=== PATIENT | male | born 1940 | race Caucasian/White ===

== ENCOUNTER → 2024-02-11 08:46 | Outpatient (REF) | payer MEDICARE, OTHER, SELFPAY ==
[2024-02-11 10:55] LABS: ALT (SGPT) 29 U/L (0-50); AST (SGOT) 31 U/L (17-59); Albumin 4.1 g/dl (3.5-5.0); Alkaline Phosphatase 80 U/L (38-126); Blood Urea Nitrogen 24 mg/dl (9-20); Carbon Dioxide 28 mmol/L (22-30); Chloride 104 mmol/L (98-107); Glucose 98 mg/dl (70-99); HDL Cholesterol 38 mg/dl; LDL Cholesterol, Calculated 37 mg/dl; Potassium 4.5 mmol/L (3.5-5.1); Sodium 143 mmol/L (135-145); Total Cholesterol 101 mg/dl (50-199); Total Protein 6.6 g/dl (6.3-8.2); Triglyceride 134 mg/dl (10-149); Very Low Density Lipoprotein 26 mg/dl (0-30); eGFR 54.17
== END ==
LOC: REG 08:46
PROVIDERS: ATTENDING PHYSICIAN Family Medicine; FAMILY PHYSICIAN Internal Medicine Cardiovascular Disease
DX: E78.2 Mixed hyperlipidemia (principal); I10 Essential (primary) hypertension
CPT/HCPCS: 36415; 80053; 80061

== ENCOUNTER → 2024-05-18 08:43 | Outpatient (REF) | payer OTHER, SELFPAY ==
[2024-05-18 11:30] LABS: Hemoglobin 14.3 g/dL (13.0-18.0); Mean Corp Hgb Conc. 32.5 g/dL (33.0-37.0); Mean Corpuscular Hgb 30.9 pg (27.0-31.0); Mean Platelet Volume 9.8 fL (7.4-10.4); Platelet Count 147 10^3/uL (130-400); Red Blood Cell Count 4.63 10^6/uL (4.70-6.10); Red Cell Dist. Width 14.1 % (11.5-14.5)
[2024-05-18 11:44] LABS: INR 1.06; PT 14.1 Sec (11.4-14.6)
[2024-05-18 11:45] LABS: APTT 31.9 Sec (23.4-35.0)
[2024-05-18 12:11] LABS: Blood Urea Nitrogen 27 mg/dl (9-20); Calcium 9.2 mg/dl (8.4-10.2); Carbon Dioxide 28 mmol/L (22-30); Chloride 104 mmol/L (98-107); Glucose 97 mg/dl (70-99); Potassium 4.3 mmol/L (3.5-5.1); Sodium 140 mmol/L (135-145); eGFR 49.56
== END ==
LOC: SDSPAT 08:43
PROVIDERS: ATTENDING PHYSICIAN Specialist; FAMILY PHYSICIAN Family Medicine
DX: N47.1 Phimosis (principal)
CPT/HCPCS: 36415; 80048; 85027; 85610; 85730

== ENCOUNTER 2024-05-22 06:06 | Day surgery (SDC) | payer OTHER, SELFPAY ==
[2024-05-18 14:24] VITALS: BMI 35.2
[2024-05-22] VITALS (10 sets, daily range): BP systolic 131–151; BP diastolic 70–94; BMI 35.2
[2024-05-22] MEDS: NORMOSOL-R/PLASMALYTE-A 1000 IV (07:00)
[2024-05-22] MEDS: FLOMAX 0.4 MG PO (11:18)
== END 2024-05-22 12:20 | disposition home or self-care (01) ==
LOC: SDS 06:06
PROVIDERS: ATTENDING PHYSICIAN Specialist; FAMILY PHYSICIAN Family Medicine
DX: N47.1 Phimosis (principal); N47.7 Other inflammatory diseases of prepuce
CPT/HCPCS: 54161; 88304

== ENCOUNTER → 2025-01-12 09:23 | Outpatient (REF) | payer OTHER, SELFPAY ==
[2025-01-12 11:18] LABS: HDL Cholesterol 35 mg/dl; LDL Cholesterol, Calculated 114 mg/dl; Very Low Density Lipoprotein 37 mg/dl (0-30)
== END ==
LOC: REG 09:23
PROVIDERS: ATTENDING PHYSICIAN Family Medicine; REFERRING PHYSICIAN Internal Medicine Cardiovascular Disease
DX: E78.2 Mixed hyperlipidemia (principal); I25.10 Atherosclerotic heart disease of native coronary artery without angina pectoris
CPT/HCPCS: 36415; 80061

== ENCOUNTER → 2025-03-05 08:56 | Outpatient (REF) | payer OTHER, SELFPAY ==
--- NOTE | 2025-03-05 10:13 | CARDSERVLU ---
Echocardiogram with Lumason completed after protocol screening completed. Allergies verified.
Patent IV site: _Rt AC___
IV site flushed with 0.9% NaCl pre and post administration.
Diluted bolus method utilized to enhance visualization of ventricular whitehead.
Total volume given: _1.5___ mL
Patient tolerated all procedures well without complications.
#22 henrik placed RT AC. Lumson given. INT d/c'd. pressure held. No bleeding noted.
== END ==
LOC: RCS 08:56
PROVIDERS: ATTENDING PHYSICIAN Internal Medicine Cardiovascular Disease; FAMILY PHYSICIAN Family Medicine
DX: R06.02 Shortness of breath (principal)
CPT/HCPCS: 93306; Q9950